=== PATIENT | male | born 1970 ===

== ENCOUNTER 2020-04-24 12:52 | Outpatient (REF) | payer OTHER, SELFPAY ==
[2020-04-24 13:10] LABS: Glucose Urine UA NEG (NEG); Leukocyte Esterase Urine NEG (NEG); Nitrite Urine NEG (NEG); PH 6.5 (5.0-8.0); Urine Blood 2+ (NEG); Urine Ketones NEG (NEG); Urine Protein NEG (NEG-TRACE)
[2020-04-24 13:12] LABS: Appearance Urine CLEAR; Color Urine YELLOW
[2020-04-24 13:23] LABS: Calcium Oxalate Crystals Urine 1+ /LPF; Mucus Urine 1+ /LPF; RBC Urine 30-49 /HPF (0); Squamous Epithelial Cell Urine 1+ /LPF; WBC Urine 0 /HPF (0-4)
[2020-04-24 13:34] LABS: Anion Gap 13 (12-20); Blood Urea Nitrogen 21 mg/dL (9-16); Carbon Dioxide 28 mmol/L (22-29); Chloride 102 mmol/L (96-108); Estimated Glomerular Filt Rate > 60; Potassium 3.7 mmol/l (3.3-5.1); Sodium 139 mmol/L (135-145)
== END 2020-04-24 12:53 | disposition home or self-care (01) ==
LOC: HO.HVNA 12:52
PROVIDERS: Visit Provider Internal Medicine Medical Oncology
DX: C85.90 Non-Hodgkin lymphoma, unspecified, unspecified site (principal); E87.6 Hypokalemia
CPT/HCPCS: 80051; 81001; 81003; 82565; 83735; 84520; 87086

== ENCOUNTER 2020-06-27 15:59 | Outpatient (REF) | payer OTHER, SELFPAY ==
[2020-06-27 16:09] LABS: Basophils Percent Auto 0.1 % (0-2); Hematocrit 26.5 % (42-52); Hemoglobin 8.9 g/dl (14.0-18.0); Imm Gran Abs Auto 0.05 X10*3/uL (0.00-0.03); Imm Gran Pct Auto 0.5 % (0.0-0.4); Lymphocytes Absolute Auto 0.1 X10*3/uL (1.2-4.9); Lymphocytes Percent Auto 1.1 % (20-40); MANUAL DIFF FLAG SCAN; Mean Corpuscular HGB Conc 33.6 g/dl (31.0-36.0); Mean Corpuscular Hemoglobin 33.3 pg (27.0-33.0); Mean Corpuscular Volume 99.3 fL (80-98); Monocytes Absolute Auto 0.3 X10*3/uL (0.1-1.2); Monocytes Percent Auto 2.4 % (2-11); Neutrophils Percent Auto 95.9 % (45-73); Platelet Count 325 X10*3/uL (160-400); Red Blood Count 2.67 X10*6/uL (4.60-5.80); Red Cell Distribution Width 14.3 % (11.0-16.0); SCAN SMEAR FLAG 1; White Blood Count 10.4 X10*3/uL (4.8-10.8)
[2020-06-27 16:30] LABS: SLIDE REVIEW VERIFIED
[2020-06-27 16:37] LABS: Anion Gap 10 (12-20); Blood Urea Nitrogen 15 mg/dL (9-16); Calcium 8.2 mg/dL (8.4-10.2); Carbon Dioxide 34 mmol/L (22-29); Chloride 96 mmol/L (96-108); Estimated Glomerular Filt Rate > 60; Glucose Random 145 mg/dL (60-115); Magnesium 1.9 mg/dL (1.6-2.6); Phosphorus 3.2 mg/dL (2.7-4.5); Potassium 4.2 mmol/l (3.3-5.1); Sodium 136 mmol/L (135-145)
== END 2020-06-27 16:00 | disposition home or self-care (01) ==
LOC: HO.LNP 15:59
PROVIDERS: Visit Provider Internal Medicine Medical Oncology
DX: D64.9 Anemia, unspecified (principal)
CPT/HCPCS: 80048; 83735; 84100; 85025